=== PATIENT | female | born 1970 | race Caucasian/White ===

== ENCOUNTER → 2020-08-21 | Outpatient (CLI) | payer OTHER | LOC: US 13:20 | DX: R22.31 Localized swelling, mass and lump, right upper limb (principal) | CPT/HCPCS: 76641-RT ==

== ENCOUNTER → 2021-05-30 | Outpatient (CLI) | payer OTHER | LOC: EMI 10:26 | DX: M15.0 Primary generalized (osteo)arthritis (principal) | CPT/HCPCS: 73721 ==

== ENCOUNTER → 2021-11-11 | Outpatient (CLI) | payer OTHER | LOC: MRI 11-10 08:30 → EMI 09:26 → MRI 13:00 | DX: M51.26 Other intervertebral disc displacement, lumbar region (principal); M48.061 Spinal stenosis, lumbar region without neurogenic claudication | CPT/HCPCS: 72148 ==

== ENCOUNTER 2021-11-14 19:53 | Emergency (ER) | payer OTHER ==
[2021-11-14 20:32] LABS: HEMOGLOBIN 15.3 gm/dl (12.3-15.3); RED BLOOD COUNT 4.46 M/UL (4.00-5.10); WHITE BLOOD COUNT 12.2 K/UL (4.5-11.0)
[2021-11-14 20:53] LABS: BUN/CREATININE RATIO 25 (0-10)
[2021-11-15] MEDS ORDERED: IBU800 MG PO (07:41)
[2021-11-15] MEDS ORDERED: METHOCARBAMOL500 MG PO (07:41)
== END 2021-11-14 23:11 | disposition home or self-care (01) ==
LOC: ER1 19:53
PROVIDERS: Physician Assistant
DX: M79.652 Pain in left thigh (principal); F17.200 Nicotine dependence, unspecified, uncomplicated
CPT/HCPCS: 80048; 85025; 85379; 85610; 85730; 99283

== ENCOUNTER 2021-11-15 05:43 | Emergency (ER) | payer OTHER ==
[2021-11-15] MEDS ORDERED: IBU800 MG PO (07:41)
[2021-11-15] MEDS ORDERED: METHOCARBAMOL500 MG PO (07:41)
== END 2021-11-15 08:38 | disposition home or self-care (01) ==
LOC: ER1 05:43
DX: M51.26 Other intervertebral disc displacement, lumbar region (principal); F17.200 Nicotine dependence, unspecified, uncomplicated; Z88.8 Allergy status to other drugs, medicaments and biological substances
CPT/HCPCS: 99283

== ENCOUNTER 2021-11-17 20:48 | Emergency (ER) | payer OTHER ==
[~2021-11-17 20:48] MED LIST: IBU800 MG PO; METHOCARBAMOL500 MG PO
== END 2021-11-18 01:20 | disposition home or self-care (01) ==
LOC: ER1 20:48
DX: M25.562 Pain in left knee (principal); F17.210 Nicotine dependence, cigarettes, uncomplicated
CPT/HCPCS: 73562; 99283

== ENCOUNTER → 2021-11-18 | Outpatient (CLI) | payer OTHER | LOC: KOH-I 14:25 | DX: R22.42 Localized swelling, mass and lump, left lower limb (principal) | CPT/HCPCS: 93971 ==

== ENCOUNTER → 2022-03-20 | Outpatient (CLI) | payer OTHER | LOC: KOH-I 03-19 16:00 | DX: F17.210 Nicotine dependence, cigarettes, uncomplicated (principal); R91.8 Other nonspecific abnormal finding of lung field | CPT/HCPCS: 71271 ==